=== PATIENT | male | born 1950 | race Caucasian/White ===

== ENCOUNTER 2016-08-08 06:27 | Inpatient (IN) | payer MEDICAID ==
[~2016-08-08] VITALS: Ht 182.9 cm; Wt 135.6 kg
[2016-08-08 07:17] LABS: Basophils # (auto) 0 uL; Basophils % (auto) 0.1 % (0.0-2.0); Eosinophils # (auto) 0.1 uL; Eosinophils % (auto) 0.6 % (0.0-7.0); Hematocrit 41.4 % (41.0-53.0); Lymphocytes # (auto) 0.8 uL; Lymphocytes % (auto) 7.7 % (10.0-50.0); Mean Corpuscular Hemoglobin 28.8 pg (28.0-32.0); Mean Corpuscular Hgb Conc. 33.8 g/dL (32.0-36.0); Mean Corpuscular Volume 85.3 fL (80.0-100.0); Mean Platelet Volume 8.3 fL (7.4-10.4); Monocytes # (auto) 0.6 uL; Monocytes % (auto) 5.7 % (0.0-12.0); Neutrophils # (auto) 8.8 uL; Neutrophils % (auto) 85.9 % (37.0-80.0); Platelet Count (auto) 287 10^3/uL (140-450); Red Cell Distribution Width 13.9 % (11.6-16.0); White Blood Cell 10.2 10^3/uL (4.4-10.8)
[2016-08-08 07:43] LABS: INR 0.99 (0.9-1.15); Partial Thromboplastin Time 28.3 sec (22.64-33.71); Prothrombin Time 10.8 sec (9.37-12.3)
[2016-08-08 07:48] LABS: Albumin 3.7 g/dL (3.4-5.0); BUN/Creatinine Ratio 15.7; Calcium 8.2 mg/dL (8.5-10.1); Magnesium 2.1 mg/dL (1.6-2.6); Potassium 4.3 mmol/L (3.5-5.1)
[2016-08-08 07:51] LABS: B-Type Natriuretic Peptide 48.8 pg/mL (0-100); Temperature: 23.1 C (20.0-25.0)
[2016-08-08 08:02] LABS: Bilirubin, Total 0.3 mg/dL (0.2-1.0); Total Protein 7.5 g/dL (6.4-8.2)
[2016-08-08] MEDS ORDERED: METOPROLOL TARTRATE 1MG/1ML-5ML VIAL IV ONE (09:15)
[2016-08-08] MEDS ORDERED: NITROGLYCERIN 0.4MG/HR TOPICAL PATCH TD ONE (09:15)
[2016-08-08] MEDS ORDERED: ASPirin 325 MG TAB PO ONE (09:15)
[2016-08-08] MEDS ORDERED: LORazepam 0.5 MG TAB PO ONE (09:15)
[2016-08-08] MEDS ORDERED: HYDROcodone-ACET 5/325MG TAB PO PRN (12:45)
[2016-08-08] MEDS ORDERED: MORPHINE SULF INJ 2 MG/ML SYRINGE 1ML IV PRN ×2 (13:00)
[2016-08-08] MEDS ORDERED: risperiDONE 1 MG TAB PO ONE (13:00)
[2016-08-08] MEDS ORDERED: DEXTROSE (50%) 50ML SYRG IV PRN (13:00)
[2016-08-08] MEDS ORDERED: ALUM & MAG HYDROX-SIMETH LIQ(MAALOX) 30 ML PO PRN (13:00)
[2016-08-08] MEDS ORDERED: NITROGLYCERIN 0.4 MG SL TAB SL PRN ×2 (13:00)
[2016-08-08] MEDS ORDERED: LORazepam 0.5 MG TAB PO PRN (13:00)
[2016-08-08] MEDS ORDERED: ONDANSETRON HCL 4 MG/2 ML VIAL IV PRN (13:00)
[2016-08-08] MEDS ORDERED: ZOLPIDEM TARTRATE 5 MG TAB PO PRN (13:00)
[2016-08-08] MEDS: SODIUM CHLOR 0.9% PF (SALINE LOCK) 10ML VIAL IV SCH ×2 (13:21→22:01)
[2016-08-08] MEDS: GABAPENTIN 300 MG CAP PO SCH ×2 (13:21→22:02)
[2016-08-08] MEDS ORDERED: CLOPIDOGREL BISULFATE 75 MG TAB PO ONE (13:30)
[2016-08-08] MEDS ORDERED: CARVEDILOL 3.125 MG TAB PO ONE (13:30)
[2016-08-08] MEDS ORDERED: ENALAPRIL MALEATE 10 MG TAB PO ONE (13:30)
[2016-08-08] MEDS ORDERED: FINA1TAB10 OR (16:44)
[2016-08-08] MEDS ORDERED: ENAL-3 PO (16:44)
[2016-08-08] MEDS ORDERED: FURO40TA PO (16:44)
[2016-08-08] MEDS ORDERED: ESCI10TA53 PO (16:49)
[2016-08-08] MEDS ORDERED: INSUINJ7 IJ (16:49)
[2016-08-08] MEDS ORDERED: ASPI-231 PO (16:49)
[2016-08-08] MEDS ORDERED: NAS17NSL (16:49)
[2016-08-08] MEDS ORDERED: CARV3.1240 PO (16:49)
[2016-08-08] MEDS ORDERED: DOCU100T15 PO (16:49)
[2016-08-08] MEDS ORDERED: LIRA18IN2 SC (16:55)
[2016-08-08] MEDS ORDERED: LEVA1NEB5 NEB (16:55)
[2016-08-08] MEDS ORDERED: RIS1T PO (16:55)
[2016-08-08] MEDS ORDERED: INSLANTI SC (16:55)
[2016-08-08] MEDS ORDERED: ALBU0.084 NEB (16:55)
[2016-08-08] MEDS ORDERED: CLOP75TA28 PO (16:55)
[2016-08-08] MEDS ORDERED: POTA10TA34 PO (16:55)
[2016-08-08] MEDS ORDERED: METF-316 PO (16:55)
[2016-08-08] MEDS ORDERED: LORA-622 PO (16:55)
[2016-08-08] MEDS ORDERED: DICL1GEL26 TD (16:57)
[2016-08-08] MEDS ORDERED: NOR5T PO (16:57)
[2016-08-08] MEDS ORDERED: GABA-339 PO (16:57)
[2016-08-08] MEDS ORDERED: LIDO5DIS21 TOP (16:57)
[2016-08-08 17:00] VITALS: BP 140/73
[2016-08-08] MEDS ORDERED: [UNRECOGNIZED DRUG - OTHER] SC SCH (17:00)
[2016-08-08] MEDS ORDERED: INSULIN GLULISINE SC SCH (17:00)
[2016-08-08] MEDS: POTASSIUM CHL 10 Meq TABLET PO SCH (17:56)
[2016-08-08] MEDS: ACETAMINOPHEN 325 MG TAB PO PRN (17:56)
[2016-08-08] MEDS: FUROSEMIDE 40 MG TAB PO SCH (17:56)
[2016-08-08] MEDS: ACCU-CHEK COMFORT CURVE STRIP VI SCH ×2 (17:58→22:02)
[2016-08-08] MEDS: InsuLIN REG 1unit/0.01ml Soln (100units/ml) SC SCH ×2 (18:04→22:02)
[2016-08-08] MEDS: IPRATROPIUM BROM 0.5 MG/2.5ML INH SOL NEB SCH (18:29)
[2016-08-08] MEDS: ALBUTEROL SULF 2.5 MG/0.5ML(0.5%) NEB SOLN NEB SCH (18:29)
[2016-08-08 22:00] VITALS: BP 107/59
[2016-08-08] MEDS: FLUTICASONE PROP NASAL SPR 0.05 % (50MCG) 16GM EACHNOSTRI SCH (22:01)
[2016-08-08] MEDS: CARVEDILOL 3.125 MG TAB PO SCH (22:02)
[2016-08-08] MEDS: ASPirin-EC 81 mg tab PO SCH (22:02)
[2016-08-08] MEDS: ATORVASTATIN 20 MG TAB PO SCH (22:02)
[2016-08-08] MEDS: INSULIN DETEMIR(LEVEMIR) 1unit/0.01ml Soln (100units/ml) SC SCH (22:38)
[2016-08-09] VITALS (7 sets, daily range): BP systolic 107–139; BP diastolic 59–81
[2016-08-09] MEDS: IPRATROPIUM BROM 0.5 MG/2.5ML INH SOL NEB SCH ×4 (00:17→18:35)
[2016-08-09] MEDS: ALBUTEROL SULF 2.5 MG/0.5ML(0.5%) NEB SOLN NEB SCH ×4 (00:17→18:35)
[2016-08-09 03:38] LABS: Urine Bilirubin Negative (Negative); Urine Blood TRACE /uL (Negative); Urine Color Yellow (Yellow); Urine Glucose Normal (Normal); Urine Ketone Negative (Negative); Urine Nitrite Negative (Negative); Urine RBC <1 /hpf (0 - 3); Urine Squamous Epithelial Cell FEW /hpf (<5); Urine Urobilinogen Normal (Negative); Urine pH 5.5 (5.0-8.0)
[2016-08-09 05:58] LABS: Basophils # (auto) 0 uL; Basophils % (auto) 0.2 % (0.0-2.0); Eosinophils # (auto) 0 uL; Eosinophils % (auto) 0.2 % (0.0-7.0); Hematocrit 38.5 % (41.0-53.0); Hemoglobin 12.7 g/dL (13.5-17.5); Lymphocytes # (auto) 1.6 uL; Lymphocytes % (auto) 21.1 % (10.0-50.0); Mean Corpuscular Hemoglobin 28.9 pg (28.0-32.0); Mean Corpuscular Volume 87.4 fL (80.0-100.0); Mean Platelet Volume 8.3 fL (7.4-10.4); Monocytes # (auto) 0.8 uL; Monocytes % (auto) 11.1 % (0.0-12.0); Neutrophils % (auto) 67.4 % (37.0-80.0); Platelet Count (auto) 246 10^3/uL (140-450); Red Cell Distribution Width 14.4 % (11.6-16.0); White Blood Cell 7.4 10^3/uL (4.4-10.8)
[2016-08-09 06:09] LABS: Albumin 3.4 g/dL (3.4-5.0); BUN/Creatinine Ratio 16.7; Bilirubin, Total 0.4 mg/dL (0.2-1.0); Calcium 8.2 mg/dL (8.5-10.1); Magnesium 2.4 mg/dL (1.6-2.6); Potassium 4.4 mmol/L (3.5-5.1); Total Protein 6.9 g/dL (6.4-8.2)
[2016-08-09] MEDS: ACCU-CHEK COMFORT CURVE STRIP VI SCH ×4 (06:23→21:28)
[2016-08-09] MEDS: GABAPENTIN 300 MG CAP PO SCH ×3 (06:45→21:25)
[2016-08-09] MEDS: SODIUM CHLOR 0.9% PF (SALINE LOCK) 10ML VIAL IV SCH ×3 (06:45→21:24)
[2016-08-09] MEDS: POTASSIUM CHL 10 Meq TABLET PO SCH ×3 (06:45→16:23)
[2016-08-09] MEDS: FUROSEMIDE 40 MG TAB PO SCH ×3 (06:46→16:25)
[2016-08-09] MEDS: APIDRA INSULIN SC SCH ×3 (06:47→16:25)
[2016-08-09] MEDS: InsuLIN REG 1unit/0.01ml Soln (100units/ml) SC SCH ×4 (06:47→21:43)
[2016-08-09] MEDS: ACETAMINOPHEN 325 MG TAB PO PRN ×2 (07:33→21:42)
[2016-08-09] MEDS: DOCUSATE SOD 100 MG CAP PO SCH (09:35)
[2016-08-09] MEDS: CARVEDILOL 3.125 MG TAB PO SCH ×2 (09:36→21:42)
[2016-08-09] MEDS: FINASTERIDE 5 MG TAB PO SCH (09:36)
[2016-08-09] MEDS: ASPirin-EC 81 mg tab PO SCH (09:37)
[2016-08-09] MEDS: risperiDONE 1 MG TAB PO SCH (09:37)
[2016-08-09] MEDS: ENALAPRIL MALEATE 10 MG TAB PO SCH (09:38)
[2016-08-09] MEDS: CITALOPRAM HYDROBR 20 MG TAB PO SCH (09:38)
[2016-08-09] MEDS: FLUTICASONE PROP NASAL SPR 0.05 % (50MCG) 16GM EACHNOSTRI SCH ×2 (09:38→21:42)
[2016-08-09] MEDS: CLOPIDOGREL BISULFATE 75 MG TAB PO SCH (09:38)
[2016-08-09] MEDS: LIDOCAINE 5% TOPICAL PATCH TOP SCH (09:39)
[2016-08-09] MEDS ORDERED: PATIENTS OWN MEDICATION PO SCH ×2 (10:00)
[2016-08-09] MEDS ORDERED: LORATADINE 10 MG TAB PO SCH (10:00)
[2016-08-09] MEDS: ATORVASTATIN 20 MG TAB PO SCH (21:25)
[2016-08-09] MEDS: INSULIN DETEMIR(LEVEMIR) 1unit/0.01ml Soln (100units/ml) SC SCH (22:00)
[2016-08-10 05:00] VITALS: BP 105/57
[2016-08-10] MEDS: POTASSIUM CHL 10 Meq TABLET PO SCH ×3 (06:20→17:23)
[2016-08-10] MEDS: SODIUM CHLOR 0.9% PF (SALINE LOCK) 10ML VIAL IV SCH ×2 (06:20→14:19)
[2016-08-10] MEDS: GABAPENTIN 300 MG CAP PO SCH ×2 (06:20→15:46)
[2016-08-10] MEDS: FUROSEMIDE 40 MG TAB PO SCH ×3 (06:21→17:23)
[2016-08-10] MEDS: InsuLIN REG 1unit/0.01ml Soln (100units/ml) SC SCH ×3 (06:22→17:00)
[2016-08-10] MEDS: ACCU-CHEK COMFORT CURVE STRIP VI SCH ×3 (06:22→17:19)
[2016-08-10] MEDS: APIDRA INSULIN SC SCH ×3 (06:23→17:42)
[2016-08-10 07:08] LABS: Hematocrit 39.1 % (41.0-53.0); Hemoglobin 13.1 g/dL (13.5-17.5); Mean Corpuscular Hemoglobin 28.7 pg (28.0-32.0); Mean Corpuscular Hgb Conc. 33.5 g/dL (32.0-36.0); Mean Corpuscular Volume 85.8 fL (80.0-100.0); Platelet Count (auto) 273 10^3/uL (140-450); Red Cell Distribution Width 14.8 % (11.6-16.0); White Blood Cell 7.5 10^3/uL (4.4-10.8)
[2016-08-10 07:19] LABS: Metamyelocytes % 0; Myelocytes % 0; Promyelocytes % 0; Reactive Lymphocytes 0
[2016-08-10 07:29] LABS: Albumin 3.4 g/dL (3.4-5.0); Bilirubin, Total 0.4 mg/dL (0.2-1.0); Calcium 8.4 mg/dL (8.5-10.1); Magnesium 2.6 mg/dL (1.6-2.6); Potassium 3.8 mmol/L (3.5-5.1); Total Protein 7.4 g/dL (6.4-8.2)
[2016-08-10] MEDS: ALBUTEROL SULF 2.5 MG/0.5ML(0.5%) NEB SOLN NEB SCH ×3 (07:46→11:55)
[2016-08-10] MEDS: IPRATROPIUM BROM 0.5 MG/2.5ML INH SOL NEB SCH ×3 (07:46→11:55)
[2016-08-10 07:52] LABS: Platelet Estimate Adequate; RBC Morphology Normal
[2016-08-10 09:00] VITALS: BP 114/46
[2016-08-10] MEDS: CARVEDILOL 3.125 MG TAB PO SCH (10:00)
[2016-08-10] MEDS: FLUTICASONE PROP NASAL SPR 0.05 % (50MCG) 16GM EACHNOSTRI SCH (10:00)
[2016-08-10] MEDS: LIDOCAINE 5% TOPICAL PATCH TOP SCH (10:00)
[2016-08-10] MEDS ORDERED: ASPirin-EC 81 mg tab PO SCH (10:00)
[2016-08-10] MEDS: DOCUSATE SOD 100 MG CAP PO SCH (10:00)
[2016-08-10] MEDS ORDERED: ADENOSINE 114 MG in GIVE UN-DILUTED 0 ML IV STA (12:05)
[2016-08-10 13:00] VITALS: BP 94/51
[2016-08-10] MEDS ORDERED: AMINOPHYLLINE 250 MG/10 ML VL IV ONE (13:57)
[2016-08-10] MEDS ORDERED: ALBUTEROL SULF 2.5 MG/0.5ML(0.5%) NEB SOLN ONE (13:58)
[2016-08-10] MEDS ORDERED: ALBUTEROL SULF 2.5 MG/0.5ML(0.5%) NEB SOLN NEB ONE (14:30)
[2016-08-10] MEDS ORDERED: IPRATROPIUM BROM 0.5 MG/2.5ML INH SOL NEB ONE (14:30)
[2016-08-10] MEDS: risperiDONE 1 MG TAB PO SCH (15:46)
[2016-08-10] MEDS: CLOPIDOGREL BISULFATE 75 MG TAB PO SCH ×2 (15:46→17:42)
[2016-08-10] MEDS: CITALOPRAM HYDROBR 20 MG TAB PO SCH (15:46)
[2016-08-10] MEDS: ENALAPRIL MALEATE 10 MG TAB PO SCH (15:47)
[2016-08-10] MEDS: FINASTERIDE 5 MG TAB PO SCH (15:47)
[2016-08-10 17:00] VITALS: BP 102/42
== END 2016-08-10 19:41 | disposition home or self-care (01) | DRG 198 ==
LOC: ER 06:30 → TELE 06:31 → TELE-E-ADS 15:27 → TELE-EAST 16:31
PROVIDERS: ADMIT Internal Medicine; ATTEND Internal Medicine
DX: I25.119 Atherosclerotic heart disease of native coronary artery with unspecified angina pectoris (principal); D68.69 Other thrombophilia; E10.21 Type 1 diabetes mellitus with diabetic nephropathy; I50.42 Chronic combined systolic (congestive) and diastolic (congestive) heart failure; I13.0 Hypertensive heart and chronic kidney disease with heart failure and stage 1 through stage 4 chronic kidney disease, or unspecified chronic kidney disease; E10.22 Type 1 diabetes mellitus with diabetic chronic kidney disease; E66.01 Morbid (severe) obesity due to excess calories; G47.30 Sleep apnea, unspecified; I48.0 Paroxysmal atrial fibrillation; N18.2 Chronic kidney disease, stage 2 (mild); E87.1 Hypo-osmolality and hyponatremia; I70.0 Atherosclerosis of aorta; I49.3 Ventricular premature depolarization; I48.92 Unspecified atrial flutter; E83.51 Hypocalcemia; E78.5 Hyperlipidemia, unspecified; I48.91 Unspecified atrial fibrillation; Z95.1 Presence of aortocoronary bypass graft; Z95.2 Presence of prosthetic heart valve; Z95.5 Presence of coronary angioplasty implant and graft; I25.2 Old myocardial infarction; Z79.4 Long term (current) use of insulin; Z83.3 Family history of diabetes mellitus; Z68.41 Body mass index [BMI] 40.0-44.9, adult
CPT/HCPCS: 36415; 71020; 78452; 80053; 80061; 81001; 82962; 83036; 83735; 83880; 84443; 84484; 85007; 85025; 85027; 85610; 85730; 87086; 93005; 93017; 93306; 94640; 96374; J0153; J1815

== ENCOUNTER 2018-07-22 06:20 | Inpatient (IN) | payer OTHER, MEDICAID | END 2018-07-28 21:10 | disposition home or self-care (01) | LOC: WEST WING 07-25 10:38 → ER 06:20 → TELE-WESTW 07-25 23:12 → TELE 15:28 → TELE-WESTW 18:56 | DX: A41.9 Sepsis, unspecified organism (principal); G92 Toxic encephalopathy; J96.21 Acute and chronic respiratory failure with hypoxia; L03.115 Cellulitis of right lower limb; J44.1 Chronic obstructive pulmonary disease with (acute) exacerbation; I48.92 Unspecified atrial flutter; E87.1 Hypo-osmolality and hyponatremia; I50.42 Chronic combined systolic (congestive) and diastolic (congestive) heart failure; D68.69 Other thrombophilia; I11.0 Hypertensive heart disease with heart failure; E78.5 Hyperlipidemia, unspecified; I70.90 Unspecified atherosclerosis; E11.21 Type 2 diabetes mellitus with diabetic nephropathy; Z99.81 Dependence on supplemental oxygen; E11.65 Type 2 diabetes mellitus with hyperglycemia; I48.0 Paroxysmal atrial fibrillation; E66.01 Morbid (severe) obesity due to excess calories ==

== ENCOUNTER 2018-10-04 14:05 | Inpatient (IN) | payer OTHER, MEDICAID | END 2018-10-06 17:38 | disposition home or self-care (01) | LOC: EAST 10-05 09:10 → ER 14:05 → OVERFLOW 14:06 → EAST 21:48 | DX: L03.115 Cellulitis of right lower limb (principal); G93.41 Metabolic encephalopathy; R65.10 Systemic inflammatory response syndrome (SIRS) of non-infectious origin without acute organ dysfunction; J01.00 Acute maxillary sinusitis, unspecified ==

== ENCOUNTER 2019-07-11 19:21 | Inpatient (IN) | payer OTHER, MEDICAID ==
[~2019-07-11] VITALS: Ht 182.9 cm; Wt 136.0 kg
[~2019-07-11 19:21] MED LIST: ALBU0.084 NEB; ASPI-231 PO; CARV3.1240 PO; CLOP75TA28 PO; ENAL10TA2 PO; ESCI10TA53 PO; FINA1TAB10 OR; FURO1TAB31 PO; GABA-339 PO; HYDR-4833 PO; INSLANTI SC; INSUINJ7 IJ; LEVA1NEB5 NEB; LIDO5DIS21 TOP; LIRA18IN2 SUBCUT; LORA-622 PO; NAS17NSL; POTA1TAB61 PO; RIS1T PO
[2019-07-11] MEDS ORDERED: SODIUM CHLORIDE 0.9% 1,000 ML IV ONE ×2 (20:45→23:00)
[2019-07-11] MEDS ORDERED: LACTATED RINGER'S 1,000 ML IV ONE (21:00)
[2019-07-11] MEDS ORDERED: ACETAMINOPHEN 500 MG TAB PO ONE (21:15)
[2019-07-11 21:52] LABS: Basophils # (auto) 0.1 10 ^3/uL (0-0.2); Eosinophils # (auto) 0 10 ^3/uL (0-0.8); Lymphocytes # (auto) 0.9 10 ^3/uL (0.4-5.4)
[2019-07-11 21:53] LABS: Basophils % (auto) 0.4 % (0.0-2.0); Hematocrit 41.5 % (41.0-53.0); Hemoglobin 13.3 g/dL (13.5-17.5); Lymphocytes % (auto) 4.2 % (10.0-50.0); Mean Corpuscular Hemoglobin 27.2 pg (28.0-32.0); Mean Corpuscular Volume 84.8 fL (80.0-100.0); Monocytes # (auto) 1.7 10 ^3/uL (0-1.3); Monocytes % (auto) 7.7 % (0.0-12.0); Neutrophils # (auto) 18.9 10 ^3/uL (1.6-8.6); Neutrophils % (auto) 87.7 % (37.0-80.0); Platelet Count (auto) 220 10^3/uL (140-450); White Blood Cell 21.5 10^3/uL (4.4-10.8)
[2019-07-11 21:56] LABS: Urine Bacteria NONE SEEN /hpf (None Seen); Urine Blood Negative /uL (Negative); Urine Specific Gravity 1.013 (1.001-1.035); Urine WBC <1 /hpf (0 - 3)
[2019-07-11 22:11] LABS: Alanine Aminotransferase 31 U/L (16-61); Albumin 3.9 g/dL (3.4-5.0); Anion Gap 9 (5-15); Aspartate Aminotransferase 22 U/L (15-37); BUN/Creatinine Ratio 15.8; Blood Urea Nitrogen 21 mg/dL (7-18); Calcium 9.1 mg/dL (8.5-10.1); Carbon Dioxide 27 mmol/L (21-32); Chloride 97 mmol/L (98-107); GFR African American 69 mL/min; GFR Non-African American 57 mL/min; Glucose 367 mg/dL (74-106); Magnesium 1.9 mg/dL (1.6-2.6); Potassium 4.2 mmol/L (3.5-5.1); Sodium 133 mmol/L (136-145)
[2019-07-11 22:16] LABS: Alkaline Phosphatase 98 U/L (45-117); Bilirubin, Total 0.3 mg/dL (0.2-1.0)
[2019-07-12] MEDS ORDERED: AZITHROMYCIN 500MG/ 250ML 250 ML IV ONE (01:00)
[2019-07-12] MEDS ORDERED: VANCOMYCIN 1GM/250ML 250 ML IV ONE (01:00)
[2019-07-12] MEDS ORDERED: PIPERACILLIN-TAZO 4.5GM 100 ML IV ONE (01:00)
[2019-07-12] MEDS ORDERED: SODIUM CHLORIDE 0.9% 1,000 ML IV ONE (01:00)
[2019-07-12] MEDS ORDERED: NITROGLYCERIN 0.4 MG SL TAB SL PRN (02:45)
[2019-07-12] MEDS ORDERED: MORPHINE SULF INJ 2 MG/ML SYRINGE 1ML IV PRN (02:45)
[2019-07-12] MEDS ORDERED: DEXTROSE (50%) 50ML SYRG IV PRN ×2 (02:45→15:15)
[2019-07-12] MEDS ORDERED: TEMAZEPAM 15 MG CAP PO PRN (02:45)
[2019-07-12] MEDS ORDERED: SODIUM CHLORIDE 0.9% 1,000 ML IV SCH (02:45)
[2019-07-12] MEDS ORDERED: ONDANSETRON HCL 4 MG/2 ML VIAL IV PRN (02:45)
[2019-07-12 03:07] VITALS: BP 125/64
[2019-07-12 04:24] LABS: CRP High Sensitivity 9.97 mg/dL (< 0.3)
[2019-07-12 05:25] VITALS: BP 140/58
[2019-07-12] MEDS ORDERED: CLINDAMYCIN 600MG IV 50 ML IV SCH (06:00)
[2019-07-12] MEDS: ACCU-CHEK COMFORT CURVE STRIP VI SCH ×4 (06:00→22:22)
[2019-07-12] MEDS: ALBUTEROL SULF HFA 90MCG INH 200DOSE IN SCH ×2 (06:00→14:11)
[2019-07-12] MEDS ORDERED: GABAPENTIN 300 MG CAP PO SCH (06:00)
[2019-07-12] MEDS: InsuLIN REG 1unit/0.01ml Soln (100units/ml) SC SCH ×4 (06:54→22:21)
[2019-07-12] MEDS: AZITHROMYCIN 500MG/ 250ML 250 ML IV SCH (09:57)
[2019-07-12] MEDS: FUROSEMIDE 40 MG TAB PO SCH (09:58)
[2019-07-12] MEDS: ENALAPRIL MALEATE 10 MG TAB PO SCH (09:58)
[2019-07-12] MEDS: PANTOPRAZOLE 40 MG TAB PO SCH (09:58)
[2019-07-12] MEDS: CARVEDILOL 3.125 MG TAB PO SCH ×2 (09:58→22:17)
[2019-07-12] MEDS: ENOXAPARIN SOD 40 MG/0.4 ML SYRINGE SC SCH (09:59)
[2019-07-12] MEDS ORDERED: ASCORBIC ACID 1,000 MG TAB PO SCH (10:00)
[2019-07-12] MEDS ORDERED: CHOLECALCIFEROL (VITD3) 1,000IU=25mCg TAB PO SCH (10:00)
[2019-07-12] MEDS ORDERED: ZINC SULFATE 220mg CAP or TAB PO SCH (10:00)
[2019-07-12 14:00] VITALS: BP 107/61
[2019-07-12] MEDS ORDERED: ALBUTEROL SULF 2.5 MG/0.5ML(0.5%) NEB SOLN NEB PRN (15:15)
[2019-07-12] MEDS ORDERED: IPRATROPIUM BROM 0.5 MG/2.5ML INH SOL NEB PRN (15:15)
[2019-07-12] MEDS ORDERED: VANCOMYCIN PER PHARMACY 0 MG IV SCH (15:15)
[2019-07-12] MEDS: SODIUM CHLORIDE 0.9% 1,000 ML IV SCH (16:24)
[2019-07-12] MEDS: VANCOMYCIN 1GM/250ML 250 ML IV SCH (16:25)
[2019-07-12] MEDS ORDERED: OPTISON 3ml Vial for INJ IV ONE (17:15)
[2019-07-12] MEDS: PIPERACILLIN-TAZOB 3.375GM 100 ML IV SCH (18:43)
[2019-07-12 21:45] VITALS: BP 92/45
[2019-07-12] MEDS ORDERED: INSULIN LANTUS (GLARGINE) 1 /0.01ml (100units/ml) SC SCH (22:00)
[2019-07-13] MEDS: PIPERACILLIN-TAZOB 3.375GM 100 ML IV SCH ×4 (00:30→17:39)
[2019-07-13] MEDS: AZITHROMYCIN 500MG/ 250ML 250 ML IV SCH (02:09)
[2019-07-13] MEDS: VANCOMYCIN 1GM/250ML 250 ML IV SCH ×3 (02:12→22:00)
[2019-07-13 05:00] VITALS: BP 111/52
[2019-07-13] MEDS: InsuLIN REG 1unit/0.01ml Soln (100units/ml) SC SCH ×4 (06:56→21:43)
[2019-07-13] MEDS: ACCU-CHEK COMFORT CURVE STRIP VI SCH ×4 (06:58→21:44)
[2019-07-13 07:20] LABS: Basophils # (auto) 0.1 10 ^3/uL (0-0.2); Basophils % (auto) 0.5 % (0.0-2.0); Eosinophils # (auto) 0.3 10 ^3/uL (0-0.8); Eosinophils % (auto) 2.2 % (0.0-7.0); Hematocrit 35.5 % (41.0-53.0); Hemoglobin 11.6 g/dL (13.5-17.5); Lymphocytes # (auto) 1.9 10 ^3/uL (0.4-5.4); Lymphocytes % (auto) 15.8 % (10.0-50.0); Mean Corpuscular Hemoglobin 27.3 pg (28.0-32.0); Mean Corpuscular Hgb Conc. 32.6 g/dL (32.0-36.0); Mean Corpuscular Volume 83.6 fL (80.0-100.0); Monocytes # (auto) 1.4 10 ^3/uL (0-1.3); Monocytes % (auto) 11.1 % (0.0-12.0); Neutrophils # (auto) 8.7 10 ^3/uL (1.6-8.6); Neutrophils % (auto) 70.4 % (37.0-80.0); Nucleated Red Blood Cells % 0.1 %; Platelet Count (auto) 196 10^3/uL (140-450); Red Blood Cells 4.24 10^6/uL (4.5-5.90); Red Cell Distribution Width 15.4 % (11.8-14.3); White Blood Cell 12.3 10^3/uL (4.4-10.8)
[2019-07-13 07:36] LABS: Potassium 3.9 mmol/L (3.5-5.1)
[2019-07-13 07:48] LABS: Cholesterol 141 mg/dL (< 200)
[2019-07-13 07:51] LABS: HDL Cholesterol 40 mg/dL (40-59); LDL Cholesterol 73 mg/dL (< 100); Triglycerides 175 mg/dL (< 150)
[2019-07-13 07:54] LABS: BUN/Creatinine Ratio 16.7; Bilirubin, Total 0.3 mg/dL (0.2-1.0); Calcium 8.4 mg/dL (8.5-10.1); Magnesium 2.3 mg/dL (1.6-2.6); Total Protein 6.8 g/dL (6.4-8.2)
[2019-07-13 09:00] VITALS: BP 141/77
[2019-07-13] MEDS: ENOXAPARIN SOD 40 MG/0.4 ML SYRINGE SC SCH (10:17)
[2019-07-13] MEDS: SODIUM CHLORIDE 0.9% 1,000 ML IV SCH (10:17)
[2019-07-13] MEDS: ENALAPRIL MALEATE 10 MG TAB PO SCH (10:18)
[2019-07-13] MEDS: PANTOPRAZOLE 40 MG TAB PO SCH (10:18)
[2019-07-13] MEDS: FINASTERIDE 5 MG TAB PO SCH (10:18)
[2019-07-13] MEDS: CARVEDILOL 3.125 MG TAB PO SCH ×2 (10:19→21:01)
[2019-07-13] MEDS: FUROSEMIDE 40 MG TAB PO SCH (10:20)
[2019-07-13] MEDS ORDERED: HYDR-4833 PO (10:56)
[2019-07-13] MEDS ORDERED: HYDR-4072 PO (10:57)
[2019-07-13] MEDS ORDERED: MORPHINE SULF INJ 2 MG/ML SYRINGE 1ML IV ONE (11:00)
[2019-07-13 11:37] LABS: Alcohol, Urine < 3.0 mg/dL (0-5); Amphetamine Screen, Urine NEGATIVE (NEGATIVE); Barbiturate Scree,Urine NEGATIVE (NEGATIVE); Benzodiazephine Screen, Urine NEGATIVE (NEGATIVE); Cannabinoid Screen, Urine NEGATIVE (NEGATIVE); Cocaine Screen, Urine NEGATIVE (NEGATIVE); Opiate Scree,Urine NEGATIVE (NEGATIVE); Phencyclidine Screen, Urine NEGATIVE (NEGATIVE)
[2019-07-13 11:39] LABS: Creatinine, Urine 95 mg/dL (30.0-125.0); Sodium Urine 40 mmol/L (40-220)
[2019-07-13 13:00] VITALS: BP 133/63
[2019-07-13 17:06] VITALS: BP 132/45
[2019-07-13] MEDS: INSULIN LANTUS (GLARGINE) 1 /0.01ml (100units/ml) SC SCH (21:45)
[2019-07-13 22:00] VITALS: BP 159/67
[2019-07-14] MEDS: PIPERACILLIN-TAZOB 3.375GM 100 ML IV SCH ×4 (00:50→18:00)
[2019-07-14] MEDS: VANCOMYCIN 1GM/250ML 250 ML IV SCH ×3 (00:55→18:00)
[2019-07-14] MEDS: ACETAMINOPHEN 325 MG TAB PO PRN (05:28)
[2019-07-14 06:00] VITALS: BP 137/71
[2019-07-14] MEDS: InsuLIN REG 1unit/0.01ml Soln (100units/ml) SC SCH ×4 (06:44→22:22)
[2019-07-14] MEDS: ACCU-CHEK COMFORT CURVE STRIP VI SCH ×4 (06:45→22:22)
[2019-07-14 07:47] LABS: Basophils # (auto) 0.1 10 ^3/uL (0-0.2); Basophils % (auto) 0.8 % (0.0-2.0); Eosinophils # (auto) 0.4 10 ^3/uL (0-0.8); Eosinophils % (auto) 4.9 % (0.0-7.0); Hematocrit 35.9 % (41.0-53.0); Hemoglobin 11.7 g/dL (13.5-17.5); Lymphocytes # (auto) 1.7 10 ^3/uL (0.4-5.4); Lymphocytes % (auto) 19.4 % (10.0-50.0); Mean Corpuscular Hemoglobin 27.2 pg (28.0-32.0); Mean Corpuscular Hgb Conc. 32.5 g/dL (32.0-36.0); Mean Corpuscular Volume 83.8 fL (80.0-100.0); Monocytes # (auto) 0.9 10 ^3/uL (0-1.3); Monocytes % (auto) 10.3 % (0.0-12.0); Neutrophils # (auto) 5.8 10 ^3/uL (1.6-8.6); Neutrophils % (auto) 64.6 % (37.0-80.0); Nucleated Red Blood Cells % 0.1 %; Platelet Count (auto) 216 10^3/uL (140-450); Red Blood Cells 4.29 10^6/uL (4.5-5.90); Red Cell Distribution Width 14.9 % (11.8-14.3); White Blood Cell 8.9 10^3/uL (4.4-10.8)
[2019-07-14 08:01] LABS: Calcium 8.4 mg/dL (8.5-10.1); Potassium 3.5 mmol/L (3.5-5.1)
[2019-07-14 09:00] VITALS: BP 150/64
[2019-07-14] MEDS: AZITHROMYCIN 500MG/ 250ML 250 ML IV SCH (09:12)
[2019-07-14] MEDS: FINASTERIDE 5 MG TAB PO SCH (09:15)
[2019-07-14] MEDS: ENOXAPARIN SOD 40 MG/0.4 ML SYRINGE SC SCH (09:15)
[2019-07-14] MEDS: PANTOPRAZOLE 40 MG TAB PO SCH (09:15)
[2019-07-14] MEDS: ENALAPRIL MALEATE 10 MG TAB PO SCH (09:16)
[2019-07-14] MEDS: FUROSEMIDE 40 MG TAB PO SCH (09:16)
[2019-07-14] MEDS: CARVEDILOL 3.125 MG TAB PO SCH ×2 (09:16→22:23)
[2019-07-14] MEDS ORDERED: MORPHINE SULF INJ 2 MG/ML SYRINGE 1ML IV PRN (10:30)
[2019-07-14] MEDS ORDERED: DOCUSATE SOD 100 MG CAP PO PRN (10:30)
[2019-07-14 13:00] VITALS: BP 129/75
[2019-07-14 16:31] VITALS: BP 126/68
[2019-07-14 22:00] VITALS: BP 119/49
[2019-07-14] MEDS: INSULIN LANTUS (GLARGINE) 1 /0.01ml (100units/ml) SC SCH (22:22)
[2019-07-15] VITALS (8 sets, daily range): BP systolic 124–165; BP diastolic 60–77
[2019-07-15] MEDS: PIPERACILLIN-TAZOB 3.375GM 100 ML IV SCH ×4 (00:44→19:28)
[2019-07-15] MEDS: VANCOMYCIN 1GM/250ML 250 ML IV SCH ×2 (04:58→14:00)
[2019-07-15] MEDS: ACCU-CHEK COMFORT CURVE STRIP VI SCH ×4 (06:33→22:05)
[2019-07-15] MEDS: InsuLIN REG 1unit/0.01ml Soln (100units/ml) SC SCH ×4 (06:34→22:05)
[2019-07-15] MEDS: FINASTERIDE 5 MG TAB PO SCH (09:55)
[2019-07-15] MEDS: CARVEDILOL 3.125 MG TAB PO SCH ×2 (09:55→22:03)
[2019-07-15] MEDS: PANTOPRAZOLE 40 MG TAB PO SCH (09:55)
[2019-07-15] MEDS: ENALAPRIL MALEATE 10 MG TAB PO SCH (09:56)
[2019-07-15] MEDS: HYDROcodone-ACET 5/325MG TAB PO PRN (09:56)
[2019-07-15] MEDS: FUROSEMIDE 40 MG TAB PO SCH (09:57)
[2019-07-15] MEDS: ENOXAPARIN SOD 40 MG/0.4 ML SYRINGE SC SCH (10:00)
[2019-07-15] MEDS ORDERED: LEVO500T21 PO (13:34)
[2019-07-15] MEDS ORDERED: CLIN300C8 PO (13:34)
[2019-07-15] MEDS ORDERED: SACC250C PO (13:34)
[2019-07-15] MEDS: ACETAMINOPHEN 325 MG TAB PO PRN (21:02)
[2019-07-15] MEDS: INSULIN LANTUS (GLARGINE) 1 /0.01ml (100units/ml) SC SCH (22:05)
[2019-07-16 00:50] VITALS: BP 130/78
[2019-07-16 05:15] VITALS: BP 155/66
[2019-07-16 05:56] LABS: Basophils # (auto) 0.1 10 ^3/uL (0-0.2); Basophils % (auto) 0.7 % (0.0-2.0); Eosinophils # (auto) 0.6 10 ^3/uL (0-0.8); Eosinophils % (auto) 5.7 % (0.0-7.0); Hematocrit 41.2 % (41.0-53.0); Hemoglobin 13.5 g/dL (13.5-17.5); Lymphocytes # (auto) 2.4 10 ^3/uL (0.4-5.4); Lymphocytes % (auto) 23.1 % (10.0-50.0); Mean Corpuscular Hemoglobin 27.5 pg (28.0-32.0); Mean Corpuscular Hgb Conc. 32.9 g/dL (32.0-36.0); Mean Corpuscular Volume 83.6 fL (80.0-100.0); Monocytes % (auto) 9.3 % (0.0-12.0); Neutrophils # (auto) 6.3 10 ^3/uL (1.6-8.6); Neutrophils % (auto) 61.2 % (37.0-80.0); Nucleated Red Blood Cells % 0.1 %; Platelet Count (auto) 296 10^3/uL (140-450); Red Blood Cells 4.92 10^6/uL (4.5-5.90); Red Cell Distribution Width 15.2 % (11.8-14.3); White Blood Cell 10.2 10^3/uL (4.4-10.8)
[2019-07-16] MEDS: CLINDAMYCIN HCL 150 MG CAP PO SCH ×2 (06:11→13:07)
[2019-07-16 06:16] LABS: Albumin 3.4 g/dL (3.4-5.0); Calcium 8.9 mg/dL (8.5-10.1); Potassium 3.8 mmol/L (3.5-5.1)
[2019-07-16 06:22] LABS: BUN/Creatinine Ratio 13.9; Bilirubin, Total 0.4 mg/dL (0.2-1.0); Total Protein 7.9 g/dL (6.4-8.2)
[2019-07-16] MEDS: InsuLIN REG 1unit/0.01ml Soln (100units/ml) SC SCH ×3 (06:53→16:35)
[2019-07-16] MEDS: ACCU-CHEK COMFORT CURVE STRIP VI SCH ×3 (07:02→16:35)
[2019-07-16 08:00] VITALS: BP 141/46
[2019-07-16 09:00] VITALS: BP 141/46
[2019-07-16] MEDS: ENOXAPARIN SOD 40 MG/0.4 ML SYRINGE SC SCH (09:34)
[2019-07-16] MEDS: CARVEDILOL 3.125 MG TAB PO SCH (09:35)
[2019-07-16] MEDS: ENALAPRIL MALEATE 10 MG TAB PO SCH (09:36)
[2019-07-16] MEDS: FUROSEMIDE 40 MG TAB PO SCH (09:36)
[2019-07-16] MEDS: PANTOPRAZOLE 40 MG TAB PO SCH (09:36)
[2019-07-16] MEDS: FINASTERIDE 5 MG TAB PO SCH (09:37)
[2019-07-16] MEDS ORDERED: levoFLOXacin 500 MG TAB PO SCH (10:00)
[2019-07-16 13:00] VITALS: BP 119/67
[2019-07-16] MEDS: HYDROcodone-ACET 5/325MG TAB PO PRN (13:06)
== END 2019-07-16 17:40 | disposition home or self-care (01) | DRG 871 ==
LOC: EDBD 19:21 → ER 19:27 → TELE 19:28 → TELE-EAST 07-12 04:45
PROVIDERS: ADMIT Nurse Practitioner; ATTEND Internal Medicine
PROC: 5A09357 Assistance with Respiratory Ventilation, Less than 24 Consecutive Hours, Continuous Positive Airway Pressure (ICD-10-PCS; principal; 2019-07-12)
PROC: 5A09357 Assistance with Respiratory Ventilation, Less than 24 Consecutive Hours, Continuous Positive Airway Pressure (ICD-10-PCS; 2019-07-13)
PROC: 5A09357 Assistance with Respiratory Ventilation, Less than 24 Consecutive Hours, Continuous Positive Airway Pressure (ICD-10-PCS; 2019-07-16)
DX: A41.9 Sepsis, unspecified organism (principal); N17.0 Acute kidney failure with tubular necrosis; I50.43 Acute on chronic combined systolic (congestive) and diastolic (congestive) heart failure; L03.115 Cellulitis of right lower limb; I13.0 Hypertensive heart and chronic kidney disease with heart failure and stage 1 through stage 4 chronic kidney disease, or unspecified chronic kidney disease; J44.1 Chronic obstructive pulmonary disease with (acute) exacerbation; D68.69 Other thrombophilia; Z68.41 Body mass index [BMI] 40.0-44.9, adult; E66.01 Morbid (severe) obesity due to excess calories; R33.9 Retention of urine, unspecified; I48.0 Paroxysmal atrial fibrillation; I25.10 Atherosclerotic heart disease of native coronary artery without angina pectoris; R31.9 Hematuria, unspecified; E11.51 Type 2 diabetes mellitus with diabetic peripheral angiopathy without gangrene; E11.22 Type 2 diabetes mellitus with diabetic chronic kidney disease; E78.5 Hyperlipidemia, unspecified; G47.30 Sleep apnea, unspecified; I25.2 Old myocardial infarction; N18.9 Chronic kidney disease, unspecified; R31.0 Gross hematuria; Z79.4 Long term (current) use of insulin; Z82.49 Family history of ischemic heart disease and other diseases of the circulatory system; Z82.5 Family history of asthma and other chronic lower respiratory diseases; Z83.3 Family history of diabetes mellitus; Z86.73 Personal history of transient ischemic attack (TIA), and cerebral infarction without residual deficits; Z95.1 Presence of aortocoronary bypass graft; Z95.0 Presence of cardiac pacemaker; Z03.818 Encounter for observation for suspected exposure to other biological agents ruled out
CPT/HCPCS: 36415; 71045; 73700; 74176; 80048; 80053; 80061; 80202; 80307; 81001; 82140; 82570; 82728; 82962; 83036; 83605; 83615; 83735; 83880; 84300; 84443; 84484; 85025; 85379; 86141; 87040; 87070; 87086; 87804; 87880; 93005; 93306; 93926; 93970; 94640; 94660; 96361; 96365; 96367; 97116; 97530; 99291; G0378; J1815; J2543; J3490; Q9956

== ENCOUNTER 2020-10-01 10:54 | Emergency (ER) | payer OTHER, MEDICAID ==
[~2020-10-01] VITALS: Ht 182.9 cm; Wt 123.4 kg
[~2020-10-01 10:54] MED LIST changes: -ALBU0.084 NEB; +BECL40AE11 IN; +DICL1GEL50 TD; +DOXY-340 PO; +ENAL10TA13 PO; -ENAL10TA2 PO; +ESCI-28 PO; -ESCI10TA53 PO; -GABA-339 PO; +GABA100C9 PO; -HYDR-4833 PO; +IBUP200C3 PO; +SERDISK IN; +SIMV-8 PO; +TRIA0.1P11 TOP
[2020-10-01 13:31] LABS: Basophils # (auto) 0.1 10 ^3/uL (0-0.2); Basophils % (auto) 0.8 % (0.0-2.0); Eosinophils # (auto) 0.4 10 ^3/uL (0-0.8); Eosinophils % (auto) 3.1 % (0.0-7.0); Hematocrit 36.2 % (41.0-53.0); Hemoglobin 11.9 g/dL (13.5-17.5); Lymphocytes # (auto) 3.4 10 ^3/uL (0.4-5.4); Mean Corpuscular Hemoglobin 27.4 pg (28.0-32.0); Mean Corpuscular Hgb Conc. 32.9 g/dL (32.0-36.0); Mean Corpuscular Volume 83.4 fL (80.0-100.0); Monocytes # (auto) 1.4 10 ^3/uL (0-1.3); Monocytes % (auto) 10.4 % (0.0-12.0); Neutrophils # (auto) 8.3 10 ^3/uL (1.6-8.6); Neutrophils % (auto) 60.7 % (37.0-80.0); Nucleated Red Blood Cells % 0.1 %; Red Blood Cells 4.34 10^6/uL (4.5-5.90); Red Cell Distribution Width 14.7 % (11.8-14.3); White Blood Cell 13.6 10^3/uL (4.4-10.8)
[2020-10-01 13:45] LABS: INR 1.02 (0.9-1.15)
[2020-10-01] MEDS ORDERED: LIDOCAINE 1% (LOCAL ANESTH.) PF 5ml SDV ID ONE (15:00)
[2020-10-01 15:12] VITALS: BP 114/67
[2020-10-01] MEDS ORDERED: SODIUM CHLOR 0.9% PF (SALINE LOCK) 10ML VIAL/SYR IV SCH (22:00)
== END 2020-10-01 15:20 | disposition home or self-care (01) ==
LOC: ER 10:54
DX: T82.898A Other specified complication of vascular prosthetic devices, implants and grafts, initial encounter (principal); I11.0 Hypertensive heart disease with heart failure; I50.9 Heart failure, unspecified; J44.9 Chronic obstructive pulmonary disease, unspecified; E78.5 Hyperlipidemia, unspecified; I48.91 Unspecified atrial fibrillation; I25.2 Old myocardial infarction; E13.9 Other specified diabetes mellitus without complications; Z95.1 Presence of aortocoronary bypass graft; Z95.0 Presence of cardiac pacemaker; Z86.73 Personal history of transient ischemic attack (TIA), and cerebral infarction without residual deficits; Z79.82 Long term (current) use of aspirin; Z79.01 Long term (current) use of anticoagulants; Z79.899 Other long term (current) drug therapy; Z79.4 Long term (current) use of insulin; Z79.2 Long term (current) use of antibiotics; Z91.048 Other nonmedicinal substance allergy status
CPT/HCPCS: 36415; 36569; 71045; 85025; 85610; 99284; C1751; J7050

== ENCOUNTER 2020-10-23 16:37 | Emergency (ER) | payer OTHER, MEDICAID ==
[~2020-10-23] VITALS: Ht 182.9 cm; Wt 122.5 kg
[2020-10-23 16:37] VITALS: BP 145/55
== END 2020-10-23 23:40 | disposition left against medical advice (07) ==
LOC: ER 16:37
DX: Z45.2 Encounter for adjustment and management of vascular access device (principal); Z53.21 Procedure and treatment not carried out due to patient leaving prior to being seen by health care provider

== ENCOUNTER 2020-10-24 06:14 | Emergency (ER) | payer OTHER, MEDICAID ==
[~2020-10-24] VITALS: Ht 182.9 cm; Wt 126.1 kg
[2020-10-24 08:53] LABS: Basophils # (auto) 0.1 10 ^3/uL (0-0.2); Basophils % (auto) 1.5 % (0.0-2.0); Eosinophils # (auto) 0.6 10 ^3/uL (0-0.8); Eosinophils % (auto) 7.8 % (0.0-7.0); Hematocrit 37.2 % (41.0-53.0); Hemoglobin 12.2 g/dL (13.5-17.5); Lymphocytes # (auto) 2.1 10 ^3/uL (0.4-5.4); Lymphocytes % (auto) 26.9 % (10.0-50.0); Mean Corpuscular Hemoglobin 27.8 pg (28.0-32.0); Mean Corpuscular Hgb Conc. 32.9 g/dL (32.0-36.0); Mean Corpuscular Volume 84.4 fL (80.0-100.0); Monocytes # (auto) 0.8 10 ^3/uL (0-1.3); Neutrophils # (auto) 4.2 10 ^3/uL (1.6-8.6); Neutrophils % (auto) 53.8 % (37.0-80.0); Nucleated Red Blood Cells % 0.1 %; Red Blood Cells 4.41 10^6/uL (4.5-5.90); Red Cell Distribution Width 14.8 % (11.8-14.3); White Blood Cell 7.7 10^3/uL (4.4-10.8)
[2020-10-24 09:08] LABS: INR 1.05 (0.9-1.15); Partial Thromboplastin Time 26.5 sec (23.6-33.0)
[2020-10-24 11:09] VITALS: BP 110/50
== END 2020-10-24 13:34 | disposition left against medical advice (07) ==
LOC: ER 06:14
DX: Z45.2 Encounter for adjustment and management of vascular access device (principal); Z53.21 Procedure and treatment not carried out due to patient leaving prior to being seen by health care provider
CPT/HCPCS: 36415; 85025; 85610; 85730

== ENCOUNTER 2021-02-20 18:05 | Emergency (ER) | payer OTHER, MEDICAID ==
[~2021-02-20] VITALS: Ht 182.9 cm; Wt 123.4 kg
[~2021-02-20 18:05] MED LIST changes: -ASPI-231 PO; +ASPI1TAB20 PO; -TRIA0.1P11 TOP; +TRIA0.1P17 TOP
[2021-02-20 18:11] VITALS: BP 105/39
[2021-02-20 19:10] LABS: Basophils # (auto) 0.1 10 ^3/uL (0-0.2); Basophils % (auto) 1.2 % (0.0-2.0); Eosinophils # (auto) 0.2 10 ^3/uL (0-0.8); Eosinophils % (auto) 1.9 % (0.0-7.0); Hematocrit 40.5 % (41.0-53.0); Hemoglobin 13.6 g/dL (13.5-17.5); Lymphocytes # (auto) 2.5 10 ^3/uL (0.4-5.4); Lymphocytes % (auto) 29.1 % (10.0-50.0); Mean Corpuscular Hgb Conc. 33.6 g/dL (32.0-36.0); Mean Corpuscular Volume 83.2 fL (80.0-100.0); Monocytes # (auto) 0.8 10 ^3/uL (0-1.3); Monocytes % (auto) 9.9 % (0.0-12.0); Neutrophils # (auto) 4.9 10 ^3/uL (1.6-8.6); Neutrophils % (auto) 57.9 % (37.0-80.0); Nucleated Red Blood Cells % 0.1 %; Red Blood Cells 4.86 10^6/uL (4.5-5.90); Red Cell Distribution Width 14.8 % (11.8-14.3); White Blood Cell 8.5 10^3/uL (4.4-10.8)
[2021-02-20 19:27] LABS: Calcium 9.6 mg/dL (8.5-10.1); Potassium 3.9 mmol/L (3.5-5.1)
[2021-02-20 19:30] LABS: Bilirubin, Total 0.5 mg/dL (0.2-1.0); Total Protein 7.6 g/dL (6.4-8.2)
[2021-02-20 20:09] LABS: BUN/Creatinine Ratio 12.6
[2021-02-22] MEDS ORDERED: APIX5TAB PO (12:12)
[2021-02-22] MEDS ORDERED: FURO40TA4 PO (12:13)
[2021-02-22] MEDS ORDERED: CARV3.1240 PO (12:13)
[2021-02-22] MEDS ORDERED: HYDR-4798 PO (14:59)
== END 2021-02-21 00:12 | disposition left against medical advice (07) ==
LOC: ER 18:06
DX: E11.9 Type 2 diabetes mellitus without complications (principal); I11.0 Hypertensive heart disease with heart failure; I50.9 Heart failure, unspecified; I48.91 Unspecified atrial fibrillation; I25.2 Old myocardial infarction; E78.5 Hyperlipidemia, unspecified; J45.909 Unspecified asthma, uncomplicated; Z86.73 Personal history of transient ischemic attack (TIA), and cerebral infarction without residual deficits; Z95.1 Presence of aortocoronary bypass graft; Z95.0 Presence of cardiac pacemaker; Z79.01 Long term (current) use of anticoagulants; Z79.4 Long term (current) use of insulin; Z79.899 Other long term (current) drug therapy; Z79.82 Long term (current) use of aspirin; Z91.048 Other nonmedicinal substance allergy status
CPT/HCPCS: 36415; 80053; 82962; 85025; 93005

== ENCOUNTER 2021-02-21 15:13 | Inpatient (IN) | payer OTHER, MEDICAID ==
[~2021-02-21] VITALS: Ht 182.9 cm; Wt 120.4 kg
[2021-02-21 17:55] LABS: Basophils # (auto) 0.1 10 ^3/uL (0-0.2); Basophils % (auto) 0.8 % (0.0-2.0); Eosinophils # (auto) 0.3 10 ^3/uL (0-0.8); Eosinophils % (auto) 3.4 % (0.0-7.0); Hematocrit 39.7 % (41.0-53.0); Hemoglobin 13.3 g/dL (13.5-17.5); Lymphocytes # (auto) 2.6 10 ^3/uL (0.4-5.4); Lymphocytes % (auto) 33.5 % (10.0-50.0); Mean Corpuscular Hemoglobin 28.1 pg (28.0-32.0); Mean Corpuscular Hgb Conc. 33.6 g/dL (32.0-36.0); Mean Corpuscular Volume 83.8 fL (80.0-100.0); Monocytes # (auto) 0.7 10 ^3/uL (0-1.3); Monocytes % (auto) 9.4 % (0.0-12.0); Neutrophils # (auto) 4.1 10 ^3/uL (1.6-8.6); Neutrophils % (auto) 52.9 % (37.0-80.0); Nucleated Red Blood Cells % 0.1 %; Red Blood Cells 4.73 10^6/uL (4.5-5.90); Red Cell Distribution Width 14.8 % (11.8-14.3); White Blood Cell 7.8 10^3/uL (4.4-10.8)
[2021-02-21 18:08] LABS: Potassium 3.6 mmol/L (3.5-5.1)
[2021-02-21 18:19] LABS: Albumin 3.7 g/dL (3.4-5.0); BUN/Creatinine Ratio 13.3; Bilirubin, Total 0.3 mg/dL (0.2-1.0); Total Protein 7.5 g/dL (6.4-8.2)
[2021-02-21] MEDS ORDERED: TEMAZEPAM 15 MG CAP PO PRN (21:30)
[2021-02-21] MEDS ORDERED: ONDANSETRON HCL 4 MG/2 ML VIAL IV PRN (21:30)
[2021-02-21] MEDS ORDERED: DEXTROSE (50%) 50ML SYRG IV PRN (21:30)
[2021-02-21] MEDS ORDERED: ACETAMINOPHEN 325 MG TAB PO PRN (21:30)
[2021-02-21] MEDS ORDERED: MORPHINE SULFATE INJECTION 2 MG/ML SYRG IV PRN (21:30)
[2021-02-21] MEDS ORDERED: NITROGLYCERIN 0.4 MG SL TAB SL PRN (21:30)
[2021-02-21] MEDS: CARVEDILOL 3.125 MG TAB PO SCH (22:25)
[2021-02-21] MEDS: GABAPENTIN 400 MG CAP PO SCH (22:26)
[2021-02-21] MEDS: ATORVASTATIN 20 MG TAB PO SCH (22:26)
[2021-02-21] MEDS: ACCU-CHEK COMFORT CURVE STRIP VI SCH (22:26)
[2021-02-21] MEDS: InsuLIN REG 1unit/0.01ml Soln (100units/ml) SC SCH (22:28)
[2021-02-22 00:59] LABS: Urine Bacteria NONE SEEN /hpf (None Seen); Urine Blood Negative /uL (Negative); Urine Hyaline Cast FEW /lpf (0 - 2); Urine WBC <1 /hpf (0 - 3)
[2021-02-22] MEDS: GABAPENTIN 400 MG CAP PO SCH ×3 (06:00→21:21)
[2021-02-22] MEDS: ACCU-CHEK COMFORT CURVE STRIP VI SCH ×4 (06:33→21:21)
[2021-02-22] MEDS: InsuLIN REG 1unit/0.01ml Soln (100units/ml) SC SCH ×4 (06:34→21:27)
[2021-02-22 07:00] LABS: Basophils # (auto) 0.1 10 ^3/uL (0-0.2); Basophils % (auto) 0.8 % (0.0-2.0); Eosinophils # (auto) 0.4 10 ^3/uL (0-0.8); Eosinophils % (auto) 5.2 % (0.0-7.0); Hematocrit 39.3 % (41.0-53.0); Hemoglobin 13.3 g/dL (13.5-17.5); Lymphocytes # (auto) 2.2 10 ^3/uL (0.4-5.4); Lymphocytes % (auto) 30.3 % (10.0-50.0); Mean Corpuscular Hemoglobin 28.3 pg (28.0-32.0); Mean Corpuscular Hgb Conc. 33.9 g/dL (32.0-36.0); Mean Corpuscular Volume 83.6 fL (80.0-100.0); Monocytes # (auto) 0.7 10 ^3/uL (0-1.3); Neutrophils # (auto) 3.8 10 ^3/uL (1.6-8.6); Neutrophils % (auto) 53.7 % (37.0-80.0); Nucleated Red Blood Cells % 0.1 %; Potassium 3.6 mmol/L (3.5-5.1); Red Cell Distribution Width 14.6 % (11.8-14.3); White Blood Cell 7.2 10^3/uL (4.4-10.8)
[2021-02-22 07:08] LABS: Albumin 3.5 g/dL (3.4-5.0); BUN/Creatinine Ratio 13.8; Bilirubin, Total 0.4 mg/dL (0.2-1.0); Calcium 8.8 mg/dL (8.5-10.1); Total Protein 7.3 g/dL (6.4-8.2)
[2021-02-22] MEDS ORDERED: PANTOPRAZOLE 40 MG TAB PO SCH (10:00)
[2021-02-22] MEDS: ASPirin 81 mg TAB PO SCH (10:12)
[2021-02-22] MEDS: CARVEDILOL 3.125 MG TAB PO SCH ×2 (10:12→21:20)
[2021-02-22] MEDS: FUROSEMIDE 40 MG TAB PO SCH (10:13)
[2021-02-22] MEDS: ENALAPRIL MALEATE 10 MG TAB PO SCH (10:13)
[2021-02-22] MEDS: ENOXAPARIN SOD 40 MG/0.4 ML SYRINGE SC SCH (10:14)
[2021-02-22] MEDS ORDERED: ADENOSINE 99 MG in GIVE UN-DILUTED 0 ML IV STA (10:32)
[2021-02-22 11:11] VITALS: BP 109/63
[2021-02-22] MEDS ORDERED: APIX5TAB PO (12:12)
[2021-02-22] MEDS ORDERED: CARV3.1240 PO (12:13)
[2021-02-22] MEDS ORDERED: FURO40TA4 PO (12:13)
[2021-02-22] MEDS ORDERED: HYDR-4798 PO (14:59)
[2021-02-22 20:30] VITALS: BP 115/78
[2021-02-22] MEDS: ATORVASTATIN 20 MG TAB PO SCH (21:21)
[2021-02-23 05:00] VITALS: BP 148/73
[2021-02-23] MEDS: GABAPENTIN 400 MG CAP PO SCH ×3 (06:02→21:27)
[2021-02-23] MEDS: ACCU-CHEK COMFORT CURVE STRIP VI SCH ×4 (06:03→21:27)
[2021-02-23] MEDS: InsuLIN REG 1unit/0.01ml Soln (100units/ml) SC SCH ×4 (06:05→21:33)
[2021-02-23 08:00] VITALS: BP 142/80
[2021-02-23] MEDS: ASPirin 81 mg TAB PO SCH (09:04)
[2021-02-23] MEDS: ENOXAPARIN SOD 40 MG/0.4 ML SYRINGE SC SCH (09:04)
[2021-02-23 09:14] VITALS: BP 133/70
[2021-02-23] MEDS: CARVEDILOL 3.125 MG TAB PO SCH ×3 (09:23→21:26)
[2021-02-23] MEDS: FUROSEMIDE 40 MG TAB PO SCH (09:23)
[2021-02-23] MEDS: ENALAPRIL MALEATE 10 MG TAB PO SCH (09:24)
[2021-02-23 12:30] VITALS: BP 133/70
[2021-02-23 16:30] VITALS: BP 132/74
[2021-02-23] MEDS ORDERED: FINASTERIDE 5 MG TAB PO ONE (16:30)
[2021-02-23] MEDS ORDERED: CLOPIDOGREL BISULFATE 75 MG TAB PO ONE (16:30)
[2021-02-23] MEDS ORDERED: risperiDONE 1 MG TAB PO ONE (16:30)
[2021-02-23] MEDS: APIXABAN 5 MG TAB PO SCH (21:26)
[2021-02-23] MEDS: ATORVASTATIN 20 MG TAB PO SCH (21:27)
[2021-02-23 22:00] VITALS: BP 103/51
[2021-02-23] MEDS ORDERED: INSULIN LANTUS (GLARGINE) 1 /0.01ml (100units/ml) SC SCH (22:00)
[2021-02-24 05:15] VITALS: BP 133/67
[2021-02-24] MEDS: ACCU-CHEK COMFORT CURVE STRIP VI SCH ×2 (06:01→11:30)
[2021-02-24] MEDS: GABAPENTIN 400 MG CAP PO SCH (06:01)
[2021-02-24] MEDS: InsuLIN REG 1unit/0.01ml Soln (100units/ml) SC SCH ×2 (06:04→11:30)
[2021-02-24 09:30] VITALS: BP 126/74
[2021-02-24] MEDS ORDERED: ENALAPRIL MALEATE 10 MG TAB PO SCH (10:00)
[2021-02-24] MEDS ORDERED: risperiDONE 1 MG TAB PO SCH (10:00)
[2021-02-24] MEDS ORDERED: CLOPIDOGREL BISULFATE 75 MG TAB PO SCH (10:00)
[2021-02-24] MEDS ORDERED: FINASTERIDE 5 MG TAB PO SCH (10:00)
[2021-02-24] MEDS: ASPirin 81 mg TAB PO SCH (10:05)
[2021-02-24] MEDS: APIXABAN 5 MG TAB PO SCH (10:07)
[2021-02-24] MEDS: FUROSEMIDE 40 MG TAB PO SCH (10:09)
[2021-02-24] MEDS: CARVEDILOL 3.125 MG TAB PO SCH (10:11)
== END 2021-02-24 12:50 | disposition home or self-care (01) | DRG 303 ==
LOC: EDBD 15:13 → ER 15:13 → TELE 21:22 → TELE-WESTW 02-22 20:20
PROVIDERS: ADMIT Nurse Practitioner; ATTEND Internal Medicine
DX: I25.110 Atherosclerotic heart disease of native coronary artery with unstable angina pectoris (principal); I13.0 Hypertensive heart and chronic kidney disease with heart failure and stage 1 through stage 4 chronic kidney disease, or unspecified chronic kidney disease; I47.2 Ventricular tachycardia; E11.65 Type 2 diabetes mellitus with hyperglycemia; E66.01 Morbid (severe) obesity due to excess calories; E11.22 Type 2 diabetes mellitus with diabetic chronic kidney disease; E11.51 Type 2 diabetes mellitus with diabetic peripheral angiopathy without gangrene; E78.5 Hyperlipidemia, unspecified; I50.9 Heart failure, unspecified; J44.9 Chronic obstructive pulmonary disease, unspecified; N18.9 Chronic kidney disease, unspecified; Z20.822 Contact with and (suspected) exposure to COVID-19; N40.0 Benign prostatic hyperplasia without lower urinary tract symptoms; Z79.01 Long term (current) use of anticoagulants; Z79.02 Long term (current) use of antithrombotics/antiplatelets; I25.2 Old myocardial infarction; Z79.899 Other long term (current) drug therapy; Z80.3 Family history of malignant neoplasm of breast; Z82.49 Family history of ischemic heart disease and other diseases of the circulatory system; Z82.5 Family history of asthma and other chronic lower respiratory diseases; Z91.19 Patient's noncompliance with other medical treatment and regimen; Z83.3 Family history of diabetes mellitus; Z86.73 Personal history of transient ischemic attack (TIA), and cerebral infarction without residual deficits; Z91.14 Patient's other noncompliance with medication regimen; Z95.0 Presence of cardiac pacemaker; Z95.1 Presence of aortocoronary bypass graft
CPT/HCPCS: 36415; 71045; 78452; 80053; 81001; 82962; 83880; 84484; 85025; 87426; 93005; 93017; 93306; G0378; J0153; J1815

== ENCOUNTER 2022-12-13 12:30 | Emergency (ER) | payer OTHER, MEDICAID ==
[~2022-12-13] VITALS: Ht 182.9 cm; Wt 96.0 kg
[~2022-12-13 12:30] MED LIST changes: +APIX5TAB PO; -DICL1GEL50 TD; +DICL1GEL73 TD; -DOXY-340 PO; +DOXY1CAP57 PO; -ENAL10TA13 PO; +ENAL1TAB47 PO; -ESCI-28 PO; +ESCI1TAB36 PO; -FINA1TAB10 OR; +FINA1TAB16 OR; -FURO1TAB31 PO; +FURO40TA4 PO; +GABA-1308 PO; -GABA100C9 PO; +HYDR-4798 PO; -SIMV-8 PO; +SIMV20TA20 PO; -TRIA0.1P17 TOP; +TRIA0.1P2 TOP
[2022-12-13] MEDS ORDERED: SODIUM CHLORIDE 0.9% 500 ML IV ONE (13:00)
[2022-12-13 13:47] LABS: Basophils # (auto) 0.1 10 ^3/uL (0-0.2); Basophils % (auto) 0.8 % (0.0-2.0); Eosinophils # (auto) 0.5 10 ^3/uL (0-0.8); Eosinophils % (auto) 5.4 % (0.0-7.0); Hemoglobin 13.4 g/dL (13.5-17.5); Lymphocytes # (auto) 1.8 10 ^3/uL (0.4-5.4); Lymphocytes % (auto) 17.9 % (10.0-50.0); Mean Corpuscular Hemoglobin 28.6 pg (28.0-32.0); Mean Corpuscular Hgb Conc. 33.6 g/dL (32.0-36.0); Monocytes # (auto) 0.8 10 ^3/uL (0-1.3); Neutrophils # (auto) 6.7 10 ^3/uL (1.6-8.6); Neutrophils % (auto) 67.9 % (37.0-80.0); Nucleated Red Blood Cells % 0.1 %; Red Cell Distribution Width 14.3 % (11.8-14.3); White Blood Cell 9.9 10^3/uL (4.4-10.8)
[2022-12-13 13:57] LABS: Alanine Aminotransferase 30 U/L (7-40); Albumin 4.7 g/dL (3.2-4.8); Alkaline Phosphatase 107 U/L (46-116); Anion Gap 4 (5-15); Aspartate Aminotransferase 25 U/L (13-40); BUN/Creatinine Ratio 11.1 (10.0-20.0); Blood Urea Nitrogen 12 mg/dL (9-23); Calcium 9.4 mg/dL (8.7-10.4); Carbon Dioxide 33 mmol/L (20-30); Chloride 100 mmol/L (98-107); Glucose 158 mg/dL (74-106); Magnesium 1.8 mg/dL (1.6-2.6); Potassium 3.7 mmol/L (3.5-5.1); Sodium 137 mmol/L (136-145)
[2022-12-13 13:58] LABS: Bilirubin, Total 0.5 mg/dL (0.2-1.0); Total Protein 7.9 g/dL (5.7-8.2)
[2022-12-13 16:57] VITALS: BP 175/89; PULSE 79; RESP 18; O2SAT 96
== END 2022-12-13 17:00 | disposition home or self-care (01) ==
LOC: ER 12:30 → EDBD 12:30 → ER 16:59
DX: T67.5XXA Heat exhaustion, unspecified, initial encounter (principal); R55 Syncope and collapse; I11.0 Hypertensive heart disease with heart failure; I50.9 Heart failure, unspecified; I48.91 Unspecified atrial fibrillation; I25.2 Old myocardial infarction; E11.9 Type 2 diabetes mellitus without complications; E78.5 Hyperlipidemia, unspecified; J44.9 Chronic obstructive pulmonary disease, unspecified; Z86.73 Personal history of transient ischemic attack (TIA), and cerebral infarction without residual deficits; Z95.0 Presence of cardiac pacemaker; Z95.1 Presence of aortocoronary bypass graft; Z79.82 Long term (current) use of aspirin; Z79.4 Long term (current) use of insulin; Z79.01 Long term (current) use of anticoagulants; Z79.899 Other long term (current) drug therapy; Z91.048 Other nonmedicinal substance allergy status; X58.XXXA Exposure to other specified factors, initial encounter; Y93.89 Activity, other specified; Y92.89 Other specified places as the place of occurrence of the external cause; Y99.8 Other external cause status
CPT/HCPCS: 36415; 70450; 71045; 80053; 82962; 83735; 85025; 93005; 99285; J7040